=== PATIENT | female | born 1990 | race Two or more races ===

== ENCOUNTER 2023-07-16 11:17 | Emergency (ER) | payer OTHER ==
[~2023-07-16] VITALS: Ht 152.4 cm; Wt 49.0 kg
== END 2023-07-16 17:46 | disposition home or self-care (01) ==
LOC: ER 11:18
DX: O99.891 Other specified diseases and conditions complicating pregnancy (principal); Z3A.17 17 weeks gestation of pregnancy; Z88.2 Allergy status to sulfonamides; H60.8X2 Other otitis externa, left ear